=== PATIENT | female | born 1955 | race Caucasian/White ===

== ENCOUNTER 2018-01-21 18:13 | Inpatient (IN) | payer BC ==
[~2018-01-21] VITALS: Ht 167.6 cm; Wt 72.1 kg
[2018-01-21] MEDS ORDERED: dilTIAZem 25 MG/5 ML VIAL IVP ONE (19:00)
[2018-01-21] MEDS ORDERED: ASPIRIN 81 MG TAB.CHEW PO ONE (19:00)
[2018-01-21] MEDS ORDERED: IV DEXTROSE 5% 100 ML IV ONE (19:09)
[2018-01-21] MEDS ORDERED: dilTIAZem VIAL 125 MG in IV DEXTROSE 5% 100 ML IV PRN (19:15)
[2018-01-21] MEDS ORDERED: dilTIAZem HCL 30 MG TABLET PO ONE (19:15)
[2018-01-21 19:16] LABS: BASO # 0.1 x10^3/uL (0.0-0.2); BASO % 1 % (0-3); EOS # 0.1 x10^3/uL (0.0-0.7); EOS % 1 % (0-3); HEMATOCRIT 49.2 % (36.0-47.0); HEMOGLOBIN 16.6 g/dL (12.0-15.5); LYMPH # 1.6 x10^3/uL (1.0-4.8); LYMPH % 17 % (24-48); MEAN CORPUSCULAR HEMOGLOBIN 30 pg (25-35); MEAN CORPUSCULAR HGB CONC 34 g/dL (31-37); MEAN CORPUSCULAR VOLUME 88 fL (79-100); MONO # 0.5 x10^3/uL (0.0-1.1); MONO % 5 % (0-9); NEUT # 7.1 x10^3uL (1.8-7.7); NEUT % 76 % (31-73); PLATELET COUNT 350 x10^3/uL (140-400); RED BLOOD COUNT 5.59 x10^6/uL (3.50-5.40); RED CELL DISTRIBUTION WIDTH 14.1 % (11.5-14.5); WHITE BLOOD COUNT 9.4 x10^3/uL (4.0-11.0)
--- NOTE | 2018-01-21 19:18 | RAD ---
EXAM: Chest, single view HISTORY: Chest pain. COMPARISON: None. FINDINGS: A frontal view the chest is obtained. There is no infiltrate, pleural effusion or pneumothorax. The heart is normal in size. IMPRESSION: No acute pulmonary finding. Electronically signed by: Judy Valdez MD (01/21/2018 7:15 PM) [facility]
[2018-01-21 19:39] LABS: ALBUMIN 3.9 g/dL (3.4-5.0); ALBUMIN/GLOBULIN RATIO 1.1 (1.0-1.7); CALCIUM 9.2 mg/dL (8.5-10.1); CREATININE 0.8 mg/dL (0.6-1.0); GFR 72.4; TOTAL BILIRUBIN 0.2 mg/dL (0.2-1.0); TOTAL PROTEIN 7.6 g/dL (6.4-8.2)
--- NOTE | 2018-01-21 19:56 | PHYS DOC ---
Adult General Chief Complaint Chief Complaint headache HPI HPI This very pleasant 61 years old female who presented to the hospital based on her primary care provider recommendation story started 3:30 PM she was sitting and felt left arm. Feeling she described associate with numbness in her lip and headache she checked her blood pressure and it was 225/125 she went and saw her primary care provider who prescribed her lisinopril, hydrochlorothiazide, aspirin and he advised her to continue the emergency department Upon arrival patient blood pressure is above 200 systolic. She is complaining of headache no chest pain or shortness breath left arm numbness and left lip numbness resolved last only 30 minutes she stated Patient does not take any medication she smokes a pack a day for the past 40 years Review of Systems Review of Systems Constitutional: Denies fever or chills [] Eyes: Denies change in visual acuity, redness, or eye pain [] HENT: Denies nasal congestion or sore throat [] Respiratory: Denies cough or shortness of breath [] Cardiovascular: No additional information not addressed in HPI [] GI: Denies abdominal pain, nausea, vomiting, bloody stools or diarrhea [] : Denies dysuria or hematuria [] Musculoskeletal: Denies back pain or joint pain [] Integument: Denies rash or skin lesions [] Neurologic: focal weakness or sensory changes [] Endocrine: Denies polyuria or polydipsia [] All other systems were reviewed and found to be within normal limits, except as documented in this note. Current Medications Current Medications Current Medications Medications (Trade) Dose Ordered Sig/Vinay Start Time Stop Time Status Last Admin Dose Admin Aspirin (Children'S Aspirin) 324 mg 1X ONCE 01/21/18 19:00 01/21/18 19:01 DC 01/21/18 19:17 324 MG Dextrose 100 ml @ As Directed STK-MED ONCE 01/21/18 19:09 01/21/18 19:10 DC Diltiazem HCl (Cardizem) 125 mg STK-MED ONCE 01/21/18 19:10 01/21/18 19:11 DC Diltiazem HCl 125 mg/Dextrose 125 ml @ 5 mls/hr CONT PRN 01/21/18 19:15 01/21/18 19:17 5 MLS/HR Allergies Allergies Allergies Coded Allergies Type Severity Reaction Last Updated Verified No Known Drug Allergies 11/6/18 No Physical Exam Physical Exam Constitutional: Well developed, well nourished, no acute distress, non-toxic appearance. [] HENT: Normocephalic, atraumatic, bilateral external ears normal, oropharynx moist, no oral exudates, nose normal. [] Eyes: PERRLA, EOMI, conjunctiva normal, no discharge. [] Neck: Normal range of motion, no tenderness, supple, no stridor. [] Cardiovascular:Heart rate regular rhythm, no murmur [] Lungs & Thorax: Bilateral breath sounds clear to auscultation [] Abdomen: Bowel sounds normal, soft, no tenderness, no masses, no pulsatile masses. [] Skin: Warm, dry, no erythema, no rash. [] Back: No tenderness, no CVA tenderness. [] Extremities: No tenderness, no cyanosis, no clubbing, ROM intact, no edema. [] Neurologic: Alert and oriented X 3, normal motor function, normal sensory function, no focal deficits noted. [] Psychologic: Affect normal, judgement normal, mood normal. [] Current Patient Data Vital Signs Vital Signs Date Time Temp Pulse Resp B/P (MAP) Pulse Ox O2 Delivery O2 Flow Rate FiO2 01/21/18 19:25 100 20 158/93 (114) 95 Room Air 01/21/18 18:48 98.2 Lab Results Laboratory Tests Test 01/21/18 19:00 White Blood Count 9.4 x10^3/uL (4.0-11.0) Red Blood Count 5.59 x10^6/uL (3.50-5.40) H Hemoglobin 16.6 g/dL (12.0-15.5) H Hematocrit 49.2 % (36.0-47.0) H Mean Corpuscular Volume 88 fL (79-100) Mean Corpuscular Hemoglobin 30 pg (25-35) Mean Corpuscular Hemoglobin Concent 34 g/dL (31-37) Red Cell Distribution Width 14.1 % (11.5-14.5) Platelet Count 350 x10^3/uL (140-400) Neutrophils (%) (Auto) 76 % (31-73) H Lymphocytes (%) (Auto) 17 % (24-48) L Monocytes (%) (Auto) 5 % (0-9) Eosinophils (%) (Auto) 1 % (0-3) Basophils (%) (Auto) 1 % (0-3) Neutrophils # (Auto) 7.1 x10^3uL (1.8-7.7) Lymphocytes # (Auto) 1.6 x10^3/uL (1.0-4.8) Monocytes # (Auto) 0.5 x10^3/uL (0.0-1.1) Eosinophils # (Auto) 0.1 x10^3/uL (0.0-0.7) Basophils # (Auto) 0.1 x10^3/uL (0.0-0.2) Prothrombin Time 9.9 SEC (9.4-11.4) Prothrombin Time INR 1.0 (0.9-1.1) PTT 25 SEC (23-33) Sodium Level 139 mmol/L (136-145) Potassium Level 4.0 mmol/L (3.5-5.1) Chloride Level 101 mmol/L (98-107) Carbon Dioxide Level 28 mmol/L (21-32) Anion Gap 10 (6-14) Blood Urea Nitrogen 9 mg/dL (7-20) Creatinine 0.8 mg/dL (0.6-1.0) Estimated GFR (Cockcroft-Gault) 72.4 BUN/Creatinine Ratio 11 (6-20) Glucose Level 110 mg/dL (70-99) H Calcium Level 9.2 mg/dL (8.5-10.1) Total Bilirubin 0.2 mg/dL (0.2-1.0) Aspartate Amino Transferase (AST) 16 U/L (15-37) Alanine Aminotransferase (ALT) 27 U/L (14-59) Alkaline Phosphatase 83 U/L (46-116) Creatine Kinase 61 U/L (26-192) Creatine Kinase MB (Mass) 2.1 ng/mL (0.0-3.6) Creatine Kinase MB Relative Index 3.4 % (0-4) Troponin I Quantitative < 0.017 ng/mL (0-0.055) Total Protein 7.6 g/dL (6.4-8.2) Albumin 3.9 g/dL (3.4-5.0) Albumin/Globulin Ratio 1.1 (1.0-1.7) EKG EKG Left bundle branch block[] Radiology/Procedures Radiology/Procedures [] Impressions: No acute findings Course & Med Decision Making Course & Med Decision Making Pertinent Labs and Imaging studies reviewed. (See chart for details) [] Final Impression Final Impression Case discussed with the hospitalist on-call accident with admission to the ICU[] Problems: (1) Chest pain Qualifiers: Qualified Codes: R07.1 - Chest pain on breathing (2) Rapid atrial fibrillation Dragon Disclaimer Dragon Disclaimer This electronic medical record was generated, in whole or in part, using a voice recognition dictation system. ISAAK QUIROGA MD Jan 21, 2018 19:56
[2018-01-21] MEDS ORDERED: ONDANSETRON PF 4 MG/2 ML VIAL. IV PRN (20:00)
[2018-01-21] MEDS ORDERED: NITROGLYCERIN SUBLINGUAL 0.4 MG BOTTLE OF 25. SL PRN (20:00)
[2018-01-21] MEDS ORDERED: ACETAMINOPHEN 325 MG TABLET PO PRN (20:00)
[2018-01-21] MEDS ORDERED: MORPHINE SULFATE 2 MG/ML DISP.SYRIN. IV PRN (20:00)
[2018-01-21 23:12] VITALS: BP 189/101
[2018-01-21 23:30] VITALS: BP 182/93
[2018-01-22] VITALS (13 sets, daily range): BP systolic 129–193; BP diastolic 76–107
[2018-01-22] MEDS ORDERED: LISINOPRIL 10 MG TABLET PO ONE
[2018-01-22 00:02] LABS: BILIRUBIN,URINE NEG (NEG); CLARITY,URINE CLEAR; COLOR,URINE YELLOW; GLUCOSE,URINE NEG (NEG); UROBILINOGEN,URINE 0.2 mg/dL (0.2 mg/dL)
[2018-01-22 00:03] LABS: BACTERIA,URINE 0 /HPF (0-FEW); BARBITURATES NEG (NEG); BENZODIAZEPINES NEG (NEG); CANNABINOIDS NEG (NEG); COCAINE NEG (NEG); METHADONE NEG (NEG); NITRITE,URINE NEG (NEG); OPIATES NEG (NEG); PHENCYCLIDINE NEG (NEG); RBC,URINE OCC /HPF (0-2); SQUAMOUS EPITHELIAL CELL,UR FEW /LPF; WBC,URINE OCC /HPF (0-4)
[2018-01-22 00:05] LABS: AMPHETAMINE/METHAMPHETAMINE NEG (NEG)
[2018-01-22] MEDS: NITROGLYCERIN OINT 1 GM PACKET. TP SCH ×2 (00:15→06:00)
[2018-01-22] MEDS: ENOXAPARIN ** NOTE DOSE ** SYRINGE SQ SCH ×2 (00:17→09:00)
--- NOTE | 2018-01-22 00:51 | EKG ---
[address] [address] Test Date: 2018-01-21 Test Time: 18:56:07 Pat Name: STIVEN ANNA Department: Room: [id number] 1 Gender: F Entry Level Receptionist: : [id number] Requested By: ISAAK QUIROGA Order Number: [id number] Reading MD: Randy Cordon MD Measurements Intervals [place] Rate: 106 P: 70 VA: 162 QRS: 13 QRSD: 128 T: 139 QT: 354 QTc: 472 Interpretive Statements SINUS TACHYCARDIA LBBB Electronically Signed On 01-22-2018 11:30:34 [employer] by Randy Cordon MD
[2018-01-22 03:17] LABS: BASO # 0.1 x10^3/uL (0.0-0.2); BASO % 1 % (0-3); EOS # 0.2 x10^3/uL (0.0-0.7); EOS % 2 % (0-3); HEMATOCRIT 42.8 % (36.0-47.0); HEMOGLOBIN 14.5 g/dL (12.0-15.5); LYMPH # 2.8 x10^3/uL (1.0-4.8); LYMPH % 30 % (24-48); MEAN CORPUSCULAR HEMOGLOBIN 30 pg (25-35); MEAN CORPUSCULAR HGB CONC 34 g/dL (31-37); MEAN CORPUSCULAR VOLUME 88 fL (79-100); MONO # 0.7 x10^3/uL (0.0-1.1); MONO % 8 % (0-9); NEUT # 5.8 x10^3uL (1.8-7.7); NEUT % 60 % (31-73); PLATELET COUNT 321 x10^3/uL (140-400); RED BLOOD COUNT 4.87 x10^6/uL (3.50-5.40); RED CELL DISTRIBUTION WIDTH 14.1 % (11.5-14.5); WHITE BLOOD COUNT 9.6 x10^3/uL (4.0-11.0)
[2018-01-22 03:58] LABS: CALCIUM 8.5 mg/dL (8.5-10.1); CREATININE 0.7 mg/dL (0.6-1.0); GFR 84.5; POTASSIUM 3.6 mmol/L (3.5-5.1)
--- NOTE | 2018-01-22 07:38 | PDOC1 ---
History and Physical Date of Admission: Date of Admission: January 21, 2018 Chief Complaint: Chief Complain: Elevated blood pressure and "abnormal EKG" along with tinnitus Source: Source: Caregiver, Chart review, Patient HPI: HPI: Patient is a 62-year-old female who reports that she developed severe tinnitus yesterday approximately 3:30 PM while at rest. She felt as if her face was flushed and presented to her PCP in [place], [place] Dr Laird. She says that her blood pressure at the time was over 200 systolic and that her doctor felt her EKG "just didn't look right." He prescribed her lisinopril, hydrochlorothiazide , and aspirin which she did not get filled and she came to the [facility] emergency department for further evaluation. She says in the emergency department her blood pressure remained elevated and she did at one point developed tingling in her lips and hands. At no time did she develop any chest pain, palpitations, dyspnea, nausea, diaphoresis, headache , vision change, or focal neurologic deficits. I was contacted by the emergency department physician who reported patient had EKG with left bundle branch block no prior studies for comparison, advised that her blood pressure was improved on Cardizem drip and that labs including cardiac enzymes were negative 1. She was admitted to the ICU for further blood pressure control and observation. I requested cardiology be consulted. Her only past medical history is untreated hypertension and she is a pack-a-day smoker since the age of 11. She reported to me that her mom at 79 years of age and that she did have cardiac stents earlier in life, she does not know her father's medical history and she has a brother who in his sleep she describes as having been morbidly obese. Upon arrival to the ICU nursing had received report patient was atrial fibrillation with RVR after confirming with the patient no history of bleed I initiated Lovenox anticoagulation, serial cardiac enzymes, urine drug screen and serum EtOH, echocardiogram, and requested fasting lipids. Upon evaluating her early this morning I found her to be awake sitting up in her ICU bed in no apparent distress. She continues to deny any chest pain or dyspnea and states for the most part she is feeling much better. She denies any leg swelling, orthopnea, or PND and is hungry. I reviewed the available EKG which appeared to be sinus rhythm with intraventricular block, a.m. labs remain pending at this time. Past Medical History: Cardiovascular: HTN ("I've been told to have high blood pressure but have never been prescribed any medications.") Past Surgical History: PSH: Noncontributory Family History: Family History: Heart Disease (patient's mother) Social History: Smoke: 1 pack per day (since the age of 11) Alcohol: none Drugs: None Allergies: Allergies: Coded Allergies: No Known Drug Allergies (Unverified , 01/21/18) Current Medications: Current Medications: Current Medications Medications (Trade) Dose Ordered Sig/Vinay Start Time Stop Time Status Last Admin Dose Admin Acetaminophen (Tylenol) 650 mg PRN Q4HRS PRN 01/21/18 20:00 01/22/18 19:59 Aspirin (Children'S Aspirin) 324 mg 1X ONCE 01/21/18 19:00 01/21/18 19:01 DC 01/21/18 19:17 324 MG Dextrose 100 ml @ As Directed STK-MED ONCE 01/21/18 19:09 01/21/18 19:10 DC Diltiazem HCl (Cardizem) 125 mg STK-MED ONCE 01/21/18 19:10 01/21/18 19:11 DC Diltiazem HCl 125 mg/Dextrose 125 ml @ 5 mls/hr CONT PRN 01/21/18 19:15 01/21/18 19:17 5 MLS/HR Enoxaparin Sodium (Lovenox 80mg Syringe) 72 mg Q12HR 01/21/18 23:00 01/22/18 00:17 72 MG Lisinopril (Prinivil) 10 mg 1X ONCE 01/22/18 00:00 01/22/18 00:07 DC 01/22/18 00:14 10 MG Morphine Sulfate (Morphine 2mg Syringe) 2 mg PRN Q2HR PRN 01/21/18 20:00 01/22/18 19:59 Nitroglycerin (Nitro-Bid Oint) 1.5 inch Q6HRS 01/22/18 00:00 01/22/18 00:15 1.5 INCH Nitroglycerin (Nitrostat) 0.4 mg PRN Q5MIN PRN 01/21/18 20:00 01/22/18 19:59 Ondansetron HCl (Zofran) 4 mg PRN Q4HRS PRN 01/21/18 20:00 01/22/18 19:59 ROS: ROS: Constitutional: No fever or chills Eyes: No eye pain or blurred vision Skin: No rash or itching Cardiovascular: No chest pain, syncope, palpitations, dyspnea on exertion, or edema Respiratory: No cough or difficulty breathing Gastrointestinal: No nausea, vomiting, or abdominal pain Neurologic: Mild headache this a.m., tingling of the lips and hands yesterday Endocrine: No heat or cold intolerance Genitourinary: No incontinence or hematuria Musculoskeletal: No joint pain or swelling Lymphatics: No enlarged lymph nodes Psychiatric: No anxiety or depression PE: PE: Gen.: Alert, pleasant, no apparent distress HEENT: Normocephalic atraumatic, PERRLA EOMI, no scleral icterus, oral mucosa pink and moist Neck: Supple, no lymphadenopathy, nontender Cardiovascular: Normal S1 and S2 no murmurs Pulmonary: Faint wheeze bilaterally with good air movement no respiratory distress Abdomen: Soft nontender non-distended, bowel sounds present no masses Extremities: No clubbing, cyanosis or edema Neuro: Alert and oriented 3, cranial nerves II through XII grossly intact, no lateralizing neuro deficits Skin: Warm, dry Vitals: Vitals: Vital Signs Date Time Temp Pulse Resp B/P (MAP) Pulse Ox O2 Delivery O2 Flow Rate FiO2 01/22/18 06:22 169/81 (110) Nasal Cannula 2.0 01/22/18 05:22 92 01/22/18 05:00 97.5 84 20 Labs: Labs: Laboratory Tests Test 01/21/18 19:00 01/21/18 22:25 01/21/18 23:35 01/22/18 03:00 White Blood Count 9.4 x10^3/uL (4.0-11.0) 9.6 x10^3/uL (4.0-11.0) Red Blood Count 5.59 x10^6/uL (3.50-5.40) 4.87 x10^6/uL (3.50-5.40) Hemoglobin 16.6 g/dL (12.0-15.5) 14.5 g/dL (12.0-15.5) Hematocrit 49.2 % (36.0-47.0) 42.8 % (36.0-47.0) Mean Corpuscular Volume 88 fL (79-100) 88 fL (79-100) Mean Corpuscular Hemoglobin 30 pg (25-35) 30 pg (25-35) Mean Corpuscular Hemoglobin Concent 34 g/dL (31-37) 34 g/dL (31-37) Red Cell Distribution Width 14.1 % (11.5-14.5) 14.1 % (11.5-14.5) Platelet Count 350 x10^3/uL (140-400) 321 x10^3/uL (140-400) Neutrophils (%) (Auto) 76 % (31-73) 60 % (31-73) Lymphocytes (%) (Auto) 17 % (24-48) 30 % (24-48) Monocytes (%) (Auto) 5 % (0-9) 8 % (0-9) Eosinophils (%) (Auto) 1 % (0-3) 2 % (0-3) Basophils (%) (Auto) 1 % (0-3) 1 % (0-3) Neutrophils # (Auto) 7.1 x10^3uL (1.8-7.7) 5.8 x10^3uL (1.8-7.7) Lymphocytes # (Auto) 1.6 x10^3/uL (1.0-4.8) 2.8 x10^3/uL (1.0-4.8) Monocytes # (Auto) 0.5 x10^3/uL (0.0-1.1) 0.7 x10^3/uL (0.0-1.1) Eosinophils # (Auto) 0.1 x10^3/uL (0.0-0.7) 0.2 x10^3/uL (0.0-0.7) Basophils # (Auto) 0.1 x10^3/uL (0.0-0.2) 0.1 x10^3/uL (0.0-0.2) Prothrombin Time 9.9 SEC (9.4-11.4) Prothromb Time International Ratio 1.0 (0.9-1.1) Activated Partial Thromboplast Time 25 SEC (23-33) Sodium Level 139 mmol/L (136-145) 140 mmol/L (136-145) Potassium Level 4.0 mmol/L (3.5-5.1) 3.6 mmol/L (3.5-5.1) Chloride Level 101 mmol/L (98-107) 105 mmol/L (98-107) Carbon Dioxide Level 28 mmol/L (21-32) 27 mmol/L (21-32) Anion Gap 10 (6-14) 8 (6-14) Blood Urea Nitrogen 9 mg/dL (7-20) 7 mg/dL (7-20) Creatinine 0.8 mg/dL (0.6-1.0) 0.7 mg/dL (0.6-1.0) Estimated GFR (Cockcroft-Gault) 72.4 84.5 BUN/Creatinine Ratio 11 (6-20) Glucose Level 110 mg/dL (70-99) 93 mg/dL (70-99) Calcium Level 9.2 mg/dL (8.5-10.1) 8.5 mg/dL (8.5-10.1) Total Bilirubin 0.2 mg/dL (0.2-1.0) Aspartate Amino Transf (AST/SGOT) 16 U/L (15-37) Alanine Aminotransferase (ALT/SGPT) 27 U/L (14-59) Alkaline Phosphatase 83 U/L (46-116) Creatine Kinase 61 U/L (26-192) Creatine Kinase MB (Mass) 2.1 ng/mL (0.0-3.6) Creatine Kinase MB Relative Index 3.4 % (0-4) Troponin I Quantitative < 0.017 ng/mL (0-0.055) 0.030 ng/mL (0-0.055) 0.022 ng/mL (0-0.055) Total Protein 7.6 g/dL (6.4-8.2) Albumin 3.9 g/dL (3.4-5.0) Albumin/Globulin Ratio 1.1 (1.0-1.7) Ethyl Alcohol Level < 10 mg/dL (0-10) Urine Collection Type Unknown Urine Color Yellow Urine Clarity Clear Urine pH 7.0 Urine Specific [place] 1.015 Urine Protein Neg (NEG-TRACE) Urine Glucose (UA) Neg mg/dL (NEG) Urine Ketones (Stick) Neg mg/dL (NEG) Urine Blood Trace (NEG) Urine Nitrite Neg (NEG) Urine Bilirubin Neg (NEG) Urine Urobilinogen Dipstick 0.2 mg/dL (0.2 mg/dL) Urine Leukocyte Esterase Trace (NEG) Urine RBC Occ /HPF (0-2) Urine WBC Occ /HPF (0-4) Urine Squamous Epithelial Cells Few /LPF Urine Bacteria 0 /HPF (0-FEW) Urine Opiates Screen Neg (NEG) Urine Methadone Screen Neg (NEG) Urine Barbiturates Neg (NEG) Urine Phencyclidine Screen Neg (NEG) Urine Amphetamine/Methamphetamine Neg (NEG) Urine Benzodiazepines Screen Neg (NEG) Urine Cocaine Screen Neg (NEG) Urine Cannabinoids Screen Neg (NEG) Urine Ethyl Alcohol Neg (NEG) VTE Prophylaxis: VTE Prophylaxis Devices: No VTE Pharmacological Prophylaxi: No (patient is ambulatory) Assessment/Plan: A/P: Hypertensive urgency Tinnitus (likely secondary to above) Tingling of the hands and lips: Hyperventilation versus cardiac etiology Troponin elevation peaking at 0.030: Demand ischemia? Possible obstructive sleep apnea: RN reports required 2 L of O2 at times while sleeping overnight Reported history atrial fibrillation with RVR: Seek old records including telemetry or EKG 40 pack year smoking history TSH, lipids, echocardiogram remain pending. Cardiology team evaluation later this a.m. Continue current medications for now per cardiology. TREVOR CALHOUN DO Jan 22, 2018 07:37
--- NOTE | 2018-01-22 09:34 | PDOC2 ---
MEG WANG APRN 01/22/18 0934: CONSULT Date of Admission DATE: 01/22/18 TIME: 09:33 Reason for Consult: atrial fibrillation History of Present Illness Ms Rahman is a 62 year old female who presented to the ED yesterday after being referred by her PCP for tachyarrhythmia, left hand and facial numbness. She reports that she had sudden onset yesterday, while at rest, of numbness of her upper lip area and left hand. She states she was feeling a fullness or rushing sensation in her head and ringing of her ears. She went to her PCP and was found to be tachycardic with significant elevation of blood pressure so she was sent to ED for eval and admission. She reports symptoms of numbness and tingling lasted less than 30 min. She denies any palpitations, lightheadedness or syncope. She denies any chest discomfort, dyspnea or congestive symptoms. She states that she rarely goes to the doctor but that her blood pressure has been elevated somewhat during her last couple of appointments. She denies any difficulty with her functional capacity. She reports, prior to this episode, having a sensation of her heart racing or fluttering once in a while but without associated symptoms. She reports this occurring maybe once a month. Past Medical History unremarkable. Recent blood pressure elevation noted and new Rx this visit. Past Surgical History: Tubal Ligation Family History CAD in her mom and a brother who, at 52, had SCD in his sleep, unknown etiology Social History 1ppd smoker, no significant ETOH, no illicit drugs Current Medications Current Medications Aspirin (Children'S Aspirin) 324 mg 1X ONCE PO Last administered on 01/21/18at 19:17; Start 01/21/18 at 19:00; Stop 01/21/18 at 19:01; Status DC Diltiazem HCl (Cardizem) 20 mg 1X ONCE IVP Last administered on 01/21/18at 19: 16; Start 01/21/18 at 19:00; Stop 01/21/18 at 19:01; Status DC Diltiazem HCl (Cardizem) 60 mg 1X ONCE PO Last administered on 01/21/18at 19:17 ; Start 01/21/18 at 19:15; Stop 01/21/18 at 19:16; Status DC Diltiazem HCl 125 mg/Dextrose 125 ml @ 5 mls/hr CONT PRN IV SEE I/O RECORD Last administered on 01/21/18at 19:17; Start 01/21/18 at 19:15 Dextrose 100 ml @ As Directed STK-MED ONCE IV ; Start 01/21/18 at 19:09; Stop 01/21/18 at 19:10; Status DC Diltiazem HCl (Cardizem) 125 mg STK-MED ONCE IV ; Start 01/21/18 at 19:10; Stop 01/21/18 at 19:11; Status DC Ondansetron HCl (Zofran) 4 mg PRN Q4HRS PRN IV NAUSEA/VOMITING; Start 01/21/18 at 20:00; Stop 01/22/18 at 19:59 Morphine Sulfate (Morphine 2mg Syringe) 2 mg PRN Q2HR PRN IV PAIN; Start at 20:00; Stop 01/22/18 at 19:59 Acetaminophen (Tylenol) 650 mg PRN Q4HRS PRN PO FEVER; Start 01/21/18 at 20:00 ; Stop 01/22/18 at 19:59 Nitroglycerin (Nitrostat) 0.4 mg PRN Q5MIN PRN SL CHEST PAIN; Start 01/21/18 at 20:00; Stop 01/22/18 at 19:59 Enoxaparin Sodium (Lovenox 80mg Syringe) 72 mg Q12HR SQ Last administered on at 09:00; Start 01/21/18 at 23:00 Lisinopril (Prinivil) 10 mg 1X ONCE PO Last administered on 01/22/18at 00:14; Start 01/22/18 at 00:00; Stop 01/22/18 at 00:07; Status DC Nitroglycerin (Nitro-Bid Oint) 1.5 inch Q6HRS TP Last administered on at 00:15; Start 01/22/18 at 00:00 Allergies: Coded Allergies: No Known Drug Allergies (Unverified , 01/21/18) Review of System as per HPI or negative General: Alert, Oriented X3, Cooperative, No acute distress HEENT: Atraumatic, EOMI, Mucous membr. moist/pink, Other (Neck supple, normal ROM, no JVD, HJR or carotid bruits) Lungs: Clear to auscultation, Normal air movement Heart: Normal S1, Normal S2, Other (no obvious murmurs, no gallops, clicks or rubs) Abdomen: Normal bowel sounds, Soft, No tenderness Extremities: No cyanosis, No edema, Normal pulses Neuro: Normal speech, Strength at 5/5 X4 ext Psych/Mental Status: Mental status NL, Mood NL VITALS Vital Signs Date Time Temp Pulse Resp B/P (MAP) Pulse Ox O2 Delivery O2 Flow Rate FiO2 01/22/18 07:31 Room Air 01/22/18 06:22 169/81 (110) 2.0 01/22/18 05:22 92 01/22/18 05:00 97.5 84 20 Labs Laboratory Tests Test 01/21/18 19:00 01/21/18 22:25 01/21/18 23:35 01/22/18 03:00 White Blood Count 9.4 x10^3/uL (4.0-11.0) 9.6 x10^3/uL (4.0-11.0) Red Blood Count 5.59 x10^6/uL (3.50-5.40) 4.87 x10^6/uL (3.50-5.40) Hemoglobin 16.6 g/dL (12.0-15.5) 14.5 g/dL (12.0-15.5) Hematocrit 49.2 % (36.0-47.0) 42.8 % (36.0-47.0) Mean Corpuscular Volume 88 fL (79-100) 88 fL (79-100) Mean Corpuscular Hemoglobin 30 pg (25-35) 30 pg (25-35) Mean Corpuscular Hemoglobin Concent 34 g/dL (31-37) 34 g/dL (31-37) Red Cell Distribution Width 14.1 % (11.5-14.5) 14.1 % (11.5-14.5) Platelet Count 350 x10^3/uL (140-400) 321 x10^3/uL (140-400) Neutrophils (%) (Auto) 76 % (31-73) 60 % (31-73) Lymphocytes (%) (Auto) 17 % (24-48) 30 % (24-48) Monocytes (%) (Auto) 5 % (0-9) 8 % (0-9) Eosinophils (%) (Auto) 1 % (0-3) 2 % (0-3) Basophils (%) (Auto) 1 % (0-3) 1 % (0-3) Neutrophils # (Auto) 7.1 x10^3uL (1.8-7.7) 5.8 x10^3uL (1.8-7.7) Lymphocytes # (Auto) 1.6 x10^3/uL (1.0-4.8) 2.8 x10^3/uL (1.0-4.8) Monocytes # (Auto) 0.5 x10^3/uL (0.0-1.1) 0.7 x10^3/uL (0.0-1.1) Eosinophils # (Auto) 0.1 x10^3/uL (0.0-0.7) 0.2 x10^3/uL (0.0-0.7) Basophils # (Auto) 0.1 x10^3/uL (0.0-0.2) 0.1 x10^3/uL (0.0-0.2) Prothrombin Time 9.9 SEC (9.4-11.4) Prothromb Time International Ratio 1.0 (0.9-1.1) Activated Partial Thromboplast Time 25 SEC (23-33) Sodium Level 139 mmol/L (136-145) 140 mmol/L (136-145) Potassium Level 4.0 mmol/L (3.5-5.1) 3.6 mmol/L (3.5-5.1) Chloride Level 101 mmol/L (98-107) 105 mmol/L (98-107) Carbon Dioxide Level 28 mmol/L (21-32) 27 mmol/L (21-32) Anion Gap 10 (6-14) 8 (6-14) Blood Urea Nitrogen 9 mg/dL (7-20) 7 mg/dL (7-20) Creatinine 0.8 mg/dL (0.6-1.0) 0.7 mg/dL (0.6-1.0) Estimated GFR (Cockcroft-Gault) 72.4 84.5 BUN/Creatinine Ratio 11 (6-20) Glucose Level 110 mg/dL (70-99) 93 mg/dL (70-99) Calcium Level 9.2 mg/dL (8.5-10.1) 8.5 mg/dL (8.5-10.1) Total Bilirubin 0.2 mg/dL (0.2-1.0) Aspartate Amino Transf (AST/SGOT) 16 U/L (15-37) Alanine Aminotransferase (ALT/SGPT) 27 U/L (14-59) Alkaline Phosphatase 83 U/L (46-116) Creatine Kinase 61 U/L (26-192) Creatine Kinase MB (Mass) 2.1 ng/mL (0.0-3.6) Creatine Kinase MB Relative Index 3.4 % (0-4) Troponin I Quantitative < 0.017 ng/mL (0-0.055) 0.030 ng/mL (0-0.055) 0.022 ng/mL (0-0.055) Total Protein 7.6 g/dL (6.4-8.2) Albumin 3.9 g/dL (3.4-5.0) Albumin/Globulin Ratio 1.1 (1.0-1.7) Ethyl Alcohol Level < 10 mg/dL (0-10) Urine Collection Type Unknown Urine Color Yellow Urine Clarity Clear Urine pH 7.0 Urine Specific [place] 1.015 Urine Protein Neg (NEG-TRACE) Urine Glucose (UA) Neg mg/dL (NEG) Urine Ketones (Stick) Neg mg/dL (NEG) Urine Blood Trace (NEG) Urine Nitrite Neg (NEG) Urine Bilirubin Neg (NEG) Urine Urobilinogen Dipstick 0.2 mg/dL (0.2 mg/dL) Urine Leukocyte Esterase Trace (NEG) Urine RBC Occ /HPF (0-2) Urine WBC Occ /HPF (0-4) Urine Squamous Epithelial Cells Few /LPF Urine Bacteria 0 /HPF (0-FEW) Urine Opiates Screen Neg (NEG) Urine Methadone Screen Neg (NEG) Urine Barbiturates Neg (NEG) Urine Phencyclidine Screen Neg (NEG) Urine Amphetamine/Methamphetamine Neg (NEG) Urine Benzodiazepines Screen Neg (NEG) Urine Cocaine Screen Neg (NEG) Urine Cannabinoids Screen Neg (NEG) Urine Ethyl Alcohol Neg (NEG) Images EKG - sinus tachycardia, LBBB, no acute ischemic changes Assessment/Plan 1. Atrial fibrillation - Reviewed EKGs from PCP office and arrival to ICU. no atrial fibrillation. Remains sinus rhythm. EKG done in ED unavailable for review. Stop cardizem drip. Start oral cardizem as she is hypertensive as well. Check echo for LV function and structural abnormalities. Check TSH. [id number] =2. Plan for outpatient MCT to verify paroxysmal atrial fibrillation. May consider loop if no arrhythmias on MCT as her symptoms are so far between. Will start OAC for now as she had TIA type symptoms as well. 2. TIA type symptoms. - carotis US and plan as above, bubble study with echo. 3. Uncontrolled hypertension - stop drip and start oral cardizem. hold off on Lisinopril Rx given by PCP until follow up. 4. LBBB - unknown duration. [place] minimally elevated but remain in the indeterminate range. Plan for outpatient lexiscan MPI. 5. tobaccoism - cessation encouraged if no significant abn on above testing, could go home this evening with outpatient testing and follow up. CAIT ARNETT MD 01/22/18 0984: CONSULT Images Patient seen and examined. Agree with above nurse practitioner note. No clear evidence of atrial fibrillation. She has questionable symptoms of a TIA but this may have been simply related to her blood pressure For now we will add anticoagulation given her multiple risk factors and plan for an event monitor and if this event monitor does not reveal any significant atrial arrhythmias then we will likely discontinue her an to regulation on follow-up. Her echocardiogram demonstrates normal LV systolic function. MEG WANG APRN Jan 22, 2018 09:34 CAIT ARNETT MD Jan 22, 2018 18:25
--- NOTE | 2018-01-22 11:35 | RAD ---
MR#: [id number] Date of Study: 01/22/2018 Ordering Physician: MEG WANG, Referring Physician: TREVOR CALHOUN, Tech: Ailyn Hui RDMS, JOSE, RTR APPROVED REPORT Patient Location: IN-PATIENT Laterality:Bilateral Indications CVA/TIA: TIA; Lip and Left Hand tingling and leg weakness that lasted 5 minutes Risk Factors Grayscale images of the bilateral common carotid, external and internal carotid vessels do not reveal any significant plaque. Spectral waveforms and color Doppler are within normal limits and overall 0 to less than 50% stenosis by velocity criteria. Bilateral ICA to CCA ratios are within normal limits with antegrade vertebral flow bilaterally. Doppler Spectral Velocity Analysis Right Left pCCA 72/13 cm/spCCA 90/15 cm/s mCCA 71/16 cm/smCCA 58/11 cm/s dCCA 67/22 cm/sdCCA 55/12 cm/s Bulb 55/19 cm/sBulb 52/12 cm/s ECA 69/14 cm/sECA 86/18 cm/s pICA 44/15 cm/spICA 37/10 cm/s González 49/16 cm/smICA 54/18 cm/s dICA 55/14 cm/sdICA 72/26 cm/s Vert. 38/10 cm/sVert. 36/9 cm/s ICA/CCA 0.77ICA/CCA 1.24 Critical Notification Critical Value: No <Conclusion> No significant carotid occlusive disease bilaterally. Signed by : Randy Cordon, Electronically Approved : 01/22/2018 11:35:21
--- NOTE | 2018-01-22 15:51 | CARD ---
MR#: [id number] Date of Study: 01/22/2018 Ordering Physician: TREVOR CALHOUN, Referring Physician: TREVOR CALHOUN, Tech: Ailyn Darling APPROVED REPORT EXAM: Two-dimensional and M-mode echocardiogram with Doppler and color Doppler. Other Information Quality : AverageHR: 83bpm INDICATION Arrhythmia Chest Pain Echo Enhancing Agent Indication: Rule Out Septal Defect Agent/Amount Used: Agitated [id number] RISK FACTORS Smoking 2D DIMENSIONS RVDd1.8 (2.9-3.5cm)Left Atrium(2D)2.8 (1.6-4.0cm) IVSd1.6 (0.7-1.1cm)Aortic Root(2D)3.2 (2.0-3.7cm) LVDd4.2 (3.9-5.9cm)LVOT Diameter1.7 (1.8-2.4cm) PWd1.0 (0.7-1.1cm)LVDs3.1 (2.5-4.0cm) FS (%) 26.4 %SV40.3 ml Aortic Valve AoV Peak Silverio.152.8cm/sAoV VTI29.0cm AO Peak GR.9.3mmHgLVOT Peak Silverio.158.4cm/s LVOT VTI 28.80cmAO Mean GR.5mmHg FARRAH (VMAX)2.14mh0FRA (VTI)2.31cm2 Mitral Valve MV E Ftzkdmrx95.3cm/sMV DECEL ETLX055cg MV A Hbvdjsmt93.8cm/sE/A Ratio0.9 Pulmonary Valve PV Peak Kgrnrxyb785.0cm/sPV Peak Grad.5mmHg Tricuspid Valve TR P. Wfexwztj563uf/sRAP DSECTEQY6ucJi TR Peak Gr.13mfGtFCQG48gsBv Pulmonary Vein S1 Ctqdbbiv02.8cm/sD2 Kizsmkrm57.7cm/s LEFT VENTRICLE The left ventricle is normal size. There is mild concentric left ventricular hypertrophy. The left ve ntricular systolic function is normal and the ejection fraction is within normal range. The Ejection Fraction is 50-55%. There is normal LV segmental wall motion. Transmitral Doppler flow pattern is Gra de I-abnormal relaxation pattern. RIGHT VENTRICLE The right ventricle is normal size. There is normal right ventricular wall thickness. The right ventr icular systolic function is normal. ATRIA The left atrium size is normal. The right atrium size is normal. The interatrial septum is intact wit h no evidence for an atrial septal defect or patent foramen ovale as noted on 2-D or Doppler imaging. Technically limited bubble study is normal. AORTIC VALVE The aortic valve is not well visualized. Doppler and Color Flow revealed trace aortic regurgitation. There is no significant aortic valvular stenosis. MITRAL VALVE The mitral valve is normal in structure and function. There is no mitral valve stenosis. Doppler and Color-flow revealed trace mitral regurgitation. TRICUSPID VALVE The tricuspid valve is not well visualized. Doppler and Color Flow revealed trace tricuspid regurgita tion. PULMONIC VALVE The pulmonic valve is not well visualized. Doppler and Color Flow revealed trace pulmonic valvular re gurgitation. GREAT VESSELS The aortic root is normal in size. Normal pulmonary venous flow (Doppler). The IVC is normal in size and collapses >50% with inspiration. PERICARDIAL EFFUSION There is no evidence of significant pericardial effusion. Critical Notification Critical Value: No <Conclusion> The left ventricle is normal size. The left ventricular systolic function is normal and the ejection fraction is within normal range. The Ejection Fraction is 50-55%. There is mild concentric left ventricular hypertrophy. The interatrial septum is intact with no evidence for an atrial septal defect or patent foramen ovale as noted on 2-D or Doppler imaging. Technically limited bubble study is normal. There is no significant aortic valvular stenosis. Doppler and Color Flow revealed trace aortic regurgitation. Doppler and Color-flow revealed trace mitral regurgitation. Doppler and Color Flow revealed trace tricuspid regurgitation. Signed by : Dion Subramanian MD Electronically Approved : 01/22/2018 15:51:00
[2018-01-22] MEDS ORDERED: DILT180C2 PO (17:01)
[2018-01-22] MEDS ORDERED: ATOR40TA PO (17:02)
[2018-01-22] MEDS ORDERED: APIX5TAB5 PO (17:03)
[2018-01-22] MEDS ORDERED: APIXABAN 5 MG TABLET. PO SCH (21:00)
[2018-01-22] MEDS ORDERED: ATORVASTATIN CALCIUM 20 MG TABLET PO SCH (21:00)
== END 2018-01-22 17:15 | disposition home or self-care (01) | DRG 305 ==
LOC: ER 18:13 → ICU 19:53
PROVIDERS: ADMIT Neuromusculoskeletal Medicine & OMM; ATTEND Neuromusculoskeletal Medicine & OMM
DX: I16.0 Hypertensive urgency (principal); F17.210 Nicotine dependence, cigarettes, uncomplicated; H93.19 Tinnitus, unspecified ear; I10 Essential (primary) hypertension; I44.7 Left bundle-branch block, unspecified; I48.91 Unspecified atrial fibrillation; Z82.49 Family history of ischemic heart disease and other diseases of the circulatory system; Z98.51 Tubal ligation status
CPT/HCPCS: 99285; C8929; 36415; 71045; 80048; 80053; 80061; 80307; 81001; 82553; 84443; 84484; 85025; 85610; 85730; 87086; 87641; 93005; 93880; 96365; 96366; 96376; G0480; J1650; J3490

== ENCOUNTER → 2018-01-30 | Outpatient (CLI) | payer BC ==
[2018-01-22 14:45] VITALS: BP 157/107
[~2018-01-30] MED LIST: APIX5TAB5 PO; ATOR40TA PO; DILT180C2 PO; REGADENOSON 0.4 MG/5 ML DISP.SYRIN. IV ONE
--- NOTE | 2018-01-30 14:28 | RAD ---
MR#: [id number] Date of Study: 01/30/2018 Ordering Physician: MEG WANG Referring Physician: KYRA CLOUD Tech: RT Lilly Guidry) (N) APPROVED REPORT Test Type: Pharmacological Stress Nurse/Tech: RT Chao (Miriam) (N) Test Indications: Left bundle branch block Cardiac History: none Medications: see EHR Medical History: smoker, hypertension Resting ECG: Sinus rhythm, LBBB Resting Heart Rate: 91 bpm Resting Blood Pressure: 171/95mmHg Pretest Chest Pain: None Nurse/Tech Notes Consent: The procedure was explained to the patient in lay terms. Informed consent was witnessed. Bret eout was entered into [facility]. History and Stress Test performed by RT Lilly Guidry) (N) Pharm. Details Pharmacologic stress testing was performed using 0.4mg per 5ml of regadenoson given intravenously ove r 7-10 seconds. POST EXERCISE Reason for Termination: Infusion complete Max HR: 124 bpm Max Blood Pressure: 121/79mmHg Chest Pain: No. INTERPRETATION Stress EKG Conclusion: No acute changes were noted. Imaging Protocol IMAGE PROTOCOL: Rest Tc-99m/stress Tc-99m 1 day Rest: Stress: Viability: Radiopharm.Tc99m JonngrwarVv09y Sestamibi Dose11.2mCi 33.2mCi Duration 20min. 15min. Img Date 01/30/2018 01/30/2018 Inj-Img Gepe45xhg. 60min. Rest Admin Site:IV - Right AntecubitalAdministrator: RT Chao (Miriam)(N) Stress Admin Site: IV - Right AntecubitalAdministrator: RT Lilly Guidry)(N) STRESS DATA End Diast. Vol.88.0mlAv. Heart Rate94.0bpm LVEDV index BSA2.0mlCardiac Output0.1L/min End Syst. Vol.29.0mlCO Index BSA5.5L/min LVESV index BSA1.0mlMyocardial Vejv649.0g Eject. Hwdcahdl94.0% Stress Rates Pk. Fill Rate4.00EDV/secLVtime Pk. Fill 155.30msec Pk. Empty Rate4.58ESV/secLVtime Pk. Ibpwx525.25msec 1/3 Pk. Fill1.72EDV/sec Stress Scores Regional WT2.00Summed WT18.00 Regional WM0.00Summed WM6.00 The rest and stress images show normal perfusion, normal contraction and thickening. LV Perf. Quant 17 Seg. SSS2.00 17 Seg. SRS1.00 17 Seg. SDS1.00 Stress Defect Extent (% LAD)0.00Rest Defect Extent (% LAD)3.80Rev. Defect Extent (% LAD)0.00 Stress Defect Extent (% LCX) 0.00Rest Defect Extent (% LCX)0.00Rev. Defect Extent (% LCX)0.00 Stress Defect Extent (% RCA)0.00Rest Defect Extent (% RCA)0.00Rev. Defect Extent (% RCA)0.00 Stress Defect Extent (% CHRIS)0.90Rest Defect Extent (% CHRIS)3.70Rev. Defect Extent (% CHRIS)0.40 Other Information Quality:Average Risk Assessment: Low Risk Conclusion 1. Non-diagnostic EKG due to bundle branch block 2. Normal perfusion at stress/rest. 3. Low risk study Signed by : Randy Cordon, Electronically Approved : 01/30/2018 14:27:29
== END | disposition home or self-care (01) ==
LOC: NM 09:30
PROVIDERS: ATTEND Nurse Practitioner
DX: I44.7 Left bundle-branch block, unspecified (principal)
CPT/HCPCS: 78452; 93017; A9500; J2785; 96374; 96375; 96376

== ENCOUNTER 2018-03-13 16:44 | Emergency (ER) | payer BC ==
[~2018-03-13] VITALS: Ht 167.6 cm; Wt 68.8 kg
[~2018-03-13 16:44] MED LIST changes: -REGADENOSON 0.4 MG/5 ML DISP.SYRIN. IV ONE
--- NOTE | 2018-03-13 17:48 | PHYS DOC ---
Past History Past Medical History: A-Fib, High Cholesterol, Hypertension Past Surgical History: Tubal ligation Smoking: Cigarettes, Greater than 1 pack/day Alcohol Use: None Drug Use: None Adult General Chief Complaint Chief Complaint: HYPERTENSION HPI HPI Patient is a pleasant 62-year-old female who presents to the emergency department for evaluation. She states that she was sitting at home watching TV just prior to arrival, when she checked her blood pressure, because she was diagnosed with blood pressure about 2 months ago, and has been checking her blood pressure regularly. She states that she checked her blood pressure was over 200. She states that she checked numerous times, because it was initially a little elevated and she became anxious about the mild elevation. She has an asymptomatic. She was checking her blood pressure as part of her monitoring routine. She was recently started on a few blood pressure medications and reports compliance. She denies any chest pain, shortness of breath, headache, vision changes, numbness, or weakness. There are no alleviating or exacerbating factors to the patient's symptoms. Review of Systems Review of Systems Constitutional: Denies fever or chills [] Eyes: Denies change in visual acuity, redness, or eye pain [] HENT: Denies nasal congestion or sore throat [] Respiratory: Denies cough or shortness of breath [] Cardiovascular:The patient denies any shortness of breath, chest pain, palpitations, or orthopnea [] GI: Denies abdominal pain, nausea, vomiting, bloody stools or diarrhea [] : Denies dysuria or hematuria [] Musculoskeletal: Denies back pain or joint pain [] Integument: Denies rash or skin lesions [] Neurologic: Denies headache, focal weakness or sensory changes [] Endocrine: Denies polyuria or polydipsia [] All other systems were reviewed and found to be within normal limits, except as documented in this note. Allergies Allergies Allergies Coded Allergies Type Severity Reaction Last Updated Verified No Known Drug Allergies 01/21/18 No Physical Exam Physical Exam PHYSICAL EXAM: CONSTITUTIONAL: Well developed, well nourished HEAD: normocephalic, atraumatic EENT: PERRL, EOMI. Conjunctivae normal color, sclerae non-icteric; moist mucous membranes. NECK: Supple, non-tender; no meningismus. LUNGS: Lungs CTA, breathing even and unlabored. Normal air movement. HEART: Regular rate and rhythm, no murmur CHEST: No deformity; non-tender ABDOMEN: The abdomen is soft, and non-tender, no masses or bruits. EXTREM: Normal ROM; no deformity, no calf tenderness. Normal pulses palpable in all extremities. There is no pedal edema. SKIN: No rash; no diaphoresis NEURO: Alert; normal speech and cognition; CN's grossly intact; strength grossly intact without focal deficit. BACK: No CVA TTP. Current Patient Data Vital Signs Vital Signs Date Time Temp Pulse Resp B/P (MAP) Pulse Ox O2 Delivery O2 Flow Rate FiO2 03/13/18 16:55 98.2 88 18 97 Room Air 03/13/18 16:55 183/112 (135) EKG EKG [Normal sinus rhythm a rate of 75 beats for minute, normal axis, left bundle branch block with secondary repolarization abnormality, without acute ischemic ST/T changes. The patient's EKG is unchanged compared to her EKG from January 21.] Radiology/Procedures Radiology/Procedures [] Course & Med Decision Making Course & Med Decision Making 5:45 PM: Repeat blood pressure is 153/109. The patient is a symptomatically. She did have recent lab test in January, do not believe she needs any other evaluation at this time. 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 I discussed the importance of close follow-up, and return precautions for development of any symptoms or if she has continued elevated high blood pressure. I also counseled the patient about smoking cessation. Dragon Disclaimer Dragon Disclaimer This electronic medical record was generated, in whole or in part, using a voice recognition dictation system. Departure Departure: Impression: Primary Impression: Hypertension Disposition: HOME, SELF-CARE Condition: STABLE Referrals: DARREL SANTANA NP (PCP) CAIT ARNETT MD Patient Instructions: Hypertension RENATE NAQVI MD Mar 13, 2018 17:48
[2018-03-13 18:10] VITALS: BP 171/103
--- NOTE | 2018-03-14 19:35 | EKG ---
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
== END 2018-03-13 18:06 | disposition home or self-care (01) ==
LOC: ER 16:44
DX: I10 Essential (primary) hypertension (principal); I48.91 Unspecified atrial fibrillation; E78.00 Pure hypercholesterolemia, unspecified; F17.210 Nicotine dependence, cigarettes, uncomplicated
CPT/HCPCS: 93005; 99283

== ENCOUNTER 2018-05-22 13:13 | Emergency (ER) | payer BC ==
[~2018-05-22] VITALS: Ht 167.6 cm; Wt 67.1 kg
[2018-05-22 13:47] VITALS: BP 189/106
--- NOTE | 2018-05-22 14:07 | PHYS DOC ---
Past History Past Medical History: A-Fib, High Cholesterol, Hypertension Past Surgical History: Tubal ligation Smoking: Cigarettes, Greater than 1 pack/day Additional Smoking Information: 1.5 PACKS/DAY Alcohol Use: None Drug Use: None Adult General Chief Complaint Chief Complaint: HYPERTENSION HPI HPI Patient is a 63-year-old female who presents with high blood pressure. She had a feeling of a flush, upon her earlier today. This lasted several seconds. Patient for blood pressure after this and noted to be elevated. Patient became anxious because of this and her blood pressure stayed elevated so she presented to the emergency department. She denies any chest pain, palpitations, difficulty breathing, headache, changes in vision, dyspnea on exertion, or any other complaints.[] Review of Systems Review of Systems Constitutional: Denies fever or chills [] Eyes: Denies change in visual acuity, redness, or eye pain [] HENT: Denies nasal congestion or sore throat [] Respiratory: Denies cough or shortness of breath [] Cardiovascular: No chest pain or palpitations[] GI: Denies abdominal pain, nausea, vomiting, bloody stools or diarrhea [] : Denies dysuria or hematuria [] Musculoskeletal: Denies back pain or joint pain [] Integument: Denies rash or skin lesions [] Neurologic: Denies headache, focal weakness or sensory changes [] Endocrine: Denies polyuria or polydipsia [] All other systems were reviewed and found to be within normal limits, except as documented in this note. Allergies Allergies Allergies Coded Allergies Type Severity Reaction Last Updated Verified No Known Drug Allergies 01/21/18 No Physical Exam Physical Exam Constitutional: Well developed, well nourished, no acute distress, non-toxic appearance. [] HENT: Normocephalic, atraumatic, bilateral external ears normal, oropharynx moist, no oral exudates, nose normal. [] Eyes: PERRLA, EOMI, conjunctiva normal, no discharge. [] Neck: Normal range of motion, no tenderness, supple, no stridor. [] Cardiovascular:Heart rate regular rhythm, no murmur [] Lungs & Thorax: Bilateral breath sounds clear to auscultation [] Abdomen: Bowel sounds normal, soft, no tenderness, no masses, no pulsatile masses. [] Skin: Warm, dry, no erythema, no rash. [] Back: No tenderness, no CVA tenderness. [] Extremities: No tenderness, no cyanosis, no clubbing, ROM intact, no edema. [] Neurologic: Alert and oriented X 3, normal motor function, normal sensory function, no focal deficits noted. [] Psychologic: Affect normal, judgement normal, mood normal. [] Current Patient Data Vital Signs Vital Signs Date Time Temp Pulse Resp B/P (MAP) Pulse Ox O2 Delivery O2 Flow Rate FiO2 05/22/18 13:18 97.5 90 20 94 Room Air EKG EKG EKG shows a sinus rhythm at 74 bpm, left axis deviation, no ST elevation, QTC of 424 ms she has a left anterior fascicular block that appears similar to previous EKGs of 01/21/2018 and 03/13/2018. This was interpreted by me at 1336[] Radiology/Procedures Radiology/Procedures [] Course & Med Decision Making Course & Med Decision Making Pertinent Labs and Imaging studies reviewed. (See chart for details) ED course and medical decision making: Patient arrived, was placed in bed, and noted to have an elevated blood pressure. Set discussed findings with the patient. During the course of her emergency pertinent stay her blood pressure did improve to her usual but still elevated range. Given that she has no chest pain or difficulty breathing or any red flags necessitating further evaluation, will allow her primary care team and cardiology team to perform long-term management of her blood pressure. Patient voiced understanding and agreement. All questions were answered.[] Dragon Disclaimer Dragon Disclaimer This electronic medical record was generated, in whole or in part, using a voice recognition dictation system. Departure Departure: Impression: Primary Impression: Hypertension Disposition: 01 HOME, SELF-CARE Condition: IMPROVED Referrals: DARREL SANTANA [facility] (PCP) Follow-up in 2 days Patient Instructions: DASH Diet, Hypertension Additional Instructions: Take your medication as prescribed. Follow-up with your regular doctor in 2 days. Return to the ER if he developed chest pain, difficulty breathing, or any other concerns. Problem Qualifiers Primary Impression: Hypertension Hypertension type: unspecified Qualified Codes: I10 - Essential (primary) hypertension SHANIA DREW May 22, 2018 14:07
--- NOTE | 2018-05-22 18:06 | EKG ---
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
== END 2018-05-22 14:10 | disposition home or self-care (01) ==
LOC: ER 13:13
DX: I10 Essential (primary) hypertension (principal); I48.91 Unspecified atrial fibrillation; E78.00 Pure hypercholesterolemia, unspecified; F17.210 Nicotine dependence, cigarettes, uncomplicated
CPT/HCPCS: 93005; 99283

== ENCOUNTER → 2018-12-04 | Outpatient (CLI) | payer BC ==
--- NOTE | 2018-12-04 18:12 | RAD ---
RENAL BILAT RENAL DUPLEX CO History: Hypertension Comparison: None. Technique: Multiple grayscale, color flow, and Doppler spectral waveform analysis images of the abdominal aorta and renal arteries were obtained. Findings: Abdominal aorta peak systolic velocity: 91.4 cm/sec. Right main renal artery peak systolic velocity: 125 cm/sec. Right renal artery to aorta ratio: 1.36 Left main renal artery peak systolic velocity: 141.6 cm/sec. Proximal left renal artery not well seen due to overlying bowel gas. Left renal artery to aorta ratio: 1.54 Renal veins are patent. IVC unremarkable. The right kidney measures 11.7 x 4.2 x 4.4 cm. The left kidney measures 11 x 4 x 4.2 cm. Evaluation of the left kidney is degraded by overlying bowel gas. Kidneys are normal in echotexture. No hydronephrosis. Right renal resistive index 0.7. Left renal resistive index 0.69. Small hypoechoic mass superior and medial to the right kidney measures 1.8 x 1.9 x 1.4 cm. IMPRESSION: 1. Small hypoechoic mass superior and medial to the right kidney, may represent adrenal mass. Recommend comparison with prior imaging studies if available. If prior imaging studies are not available, recommend adrenal protocol CT to further evaluate. 2. No evidence of renal artery stenosis. 3. Borderline elevated bilateral renal artery resistive indices, may indicate intrinsic renal disease. Electronically signed by: Aly Shaver DO (12/04/2018 6:09 PM) [id number]
== END | disposition home or self-care (01) ==
LOC: US 09:42
PROVIDERS: ATTEND Family Medicine
DX: N28.89 Other specified disorders of kidney and ureter (principal); I10 Essential (primary) hypertension
CPT/HCPCS: 76770